=== PATIENT | male | born 2000 | race Caucasian/White ===

== ENCOUNTER 2020-04-26 12:02 | Emergency (ER) | payer MEDICAID, SELFPAY ==
--- NOTE | ~2020-04-26 | XR_ITS ---
EXAMINATION: XR abdomen/kub 1V INDICATION: Bilateral flank pain TECHNIQUE: Supine view of the abdomen is obtained. COMPARISON: None FINDINGS: No abnormal calcifications are identified. A moderate volume of colonic stool is present. T here are no dilated loops of bowel. The visualized osseous structures are normal. IMPRESSION: 1. No radiographic correlate for the patient's symptoms. Reviewed, dictated and finalized at location A. 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
--- NOTE | 2020-04-26 12:22 | ED.MALEGU ---
HPI - Male Genitourinary General Chief complaint: Urogenital-Male Stated complaint: Flank pain Time Seen by Provider: 04/26/20 12:23 Source: patient Mode of arrival: ambulatory Limitations: no limitations History of Present Illness HPI Narrative: Angel Pérez is a 20 yo male with no PMH who comes to express care with c/o hematuria that started yesterday - now has bilateral back pain and pressure when tries to urinate. Intermittent back pain x 4 days Related Data Allergies Allergy/AdvReac Type Severity Reaction Status Date / Time No Known Allergies Verified 04/26/20 12:26 Review of Systems Review of Systems: Narrative: CONSTITUTIONAL: Denies fever, chills, sweats. EYES: Denies visual changes, redness, discharge. ENT: Denies rhinorrhea, congestion, sore throat, otalgia. CARDIOVASCULAR: Denies chest pain, palpitations, edema. RESPIRATORY: Denies dyspnea, wheezing, cough GASTROINTESTINAL: Denies abdominal pain, nausea, vomiting, diarrhea. GENITOURINARY: has dysuria, has hematuria, abnormal discharge SKIN: Denies rash or itching. NEUROLOGIC: Denies numbness, or focal weakness. PSYCHIATRIC: Denies anxiety or depression. PMFSH Past Medical History Medical History No acute medical problems Family History Family History Other No acute medical problems Social History Social History Smoking status: Current every day smoker Alcohol intake: current Gender identity (if verbalized by the patient): Male Comments At time of signature, I agree with nursing past medical, surgical, social and family history. There is no relevant family history pertinent to the presenting complaint. Exam Narrative: Exam Narrative: GENERAL: This is a well-nourished, well-developed patient, in mild distress. HEAD: normocephalic, atraumatic. EYES: Sclera clear/white. Vision is grossly intact. EARS: External ears normal, . Hearing grossly intact. NOSE: External nose normal without nasal discharge, nares without redness, no rhinorrhea. THROAT: Mucous membranes moist, NECK: Neck supple, CARDIOVASCULAR: Regular rate and rhythm without murmurs, gallops, or rubs. RESPIRATORY: Clear to auscultation. Breath sounds equal bilaterally. No wheezes, rales, or rhonchi. GASTROINTESTINAL: Abdomen soft, non-tender, SKIN: warm, intact with no suspicious lesions or rash, good texture and turgor. NEURO: awake, alert, and oriented to person, place and time. There were no obvious focal neurologic abnormalities. Steady gait EXTREMITIES: Normal range of motion. BACK:tender without deformity on Right flank deep tenderness Course Course Emergency Course: Patient came to express care with complaints of hematuria and difficulty starting stream of the last few days They dipstick showed positive leukocytes and blood in urine KUB done which was negative for radiological correlation to clinical symptoms Keflex 500 mg 1 twice daily x7 days if pain worsens or does not improve patient should go to PCP or to the ER for further evaluation Vital Signs Vital signs: Vital Signs Temperature 98.7 F 04/26/20 12:25 Pulse Rate 108 H 04/26/20 12:25 Respiratory Rate 16 04/26/20 12:25 Blood Pressure 135/63 04/26/20 12:25 Pulse Oximetry 99 04/26/20 12:25 Temperature 98.7 F 04/26/20 12:25 Pulse Rate 108 H 04/26/20 12:25 Respiratory Rate 16 04/26/20 12:25 Blood Pressure 135/63 04/26/20 12:25 Pulse Oximetry 99 04/26/20 12:25 MDM - Male Genitourinary Differential Diagnosis Differential diagnosis: Likely urinary tract infection, urethritis and other Lab Data Labs: Urine Glucose Negative Reference Range: Negative Urine Bilirubin Negative Refer
[2020-04-26 12:25] VITALS: BP 135/63; PULSE 108; RESP 16; TEMP 37.1; O2SAT 99
[2020-04-26] MEDS: KETOROLAC 30 MG/ML VIAL (*BKC) IM (12:59)
== END 2020-04-26 13:29 | disposition home or self-care (01) ==
PROVIDERS: Emergency Provider Nurse Practitioner
DX: N30.01 Acute cystitis with hematuria (principal); F17.200 Nicotine dependence, unspecified, uncomplicated
CPT/HCPCS: 74018; 81003; 87086; 87088; 96372; 99213; G0463; J1885

== ENCOUNTER 2020-07-27 00:19 | Emergency (ER) | payer MEDICAID, SELFPAY ==
--- NOTE | ~2020-07-27 | XR_ITS ---
EXAMINATION: XR shoulder LT min 2V DATE: 07/27/2020 01:22 INDICATION: Left shoulder injury. TECHNIQUE: 3 views of left shoulder were obtained. COMPARISON: None. FINDINGS: Bone alignment is normal. No fracture. Joint spaces are well maintained. IMPRESSION: 1. Normal left shoulder. Reviewed, dictated and finalized at location A. AL OFFICER IMPRESSION: 1. Normal left shoulder.
--- NOTE | ~2020-07-27 | CT_ITS ---
EXAMINATION: CT cervical spine wo con DATE: 07/27/2020 01:02 INDICATION: Neck injury. TECHNIQUE: Computed tomography (CT) of the cervical spine was performed without intravenous contrast. Automated exposure control and iterative reconstruction technique were employed. The dose-length pro duct was 316.74 mGy-cm. COMPARISON: None FINDINGS: Bone alignment is normal. Vertebral body heights and intervertebral disc heights are normal . The facet joints and uncovertebral joints are normal. No neural foraminal stenosis or central canal stenosis. There is a trace left mastoid effusion. IMPRESSION: 1. Normal cervical spine. Reviewed, dictated and finalized at location A. E COORDINATOR IMPRESSION: 1. Normal cervical spine.
--- NOTE | ~2020-07-27 | XR_ITS ---
EXAMINATION: XR chest 2V DATE: 07/27/2020 01:22 INDICATION: Chest injury. TECHNIQUE: Frontal and lateral views of the chest were obtained. COMPARISON: None. FINDINGS: The chest demonstrates clear lungs without pneumonia, pleural effusion, or pneumothorax. Th e heart size is normal. IMPRESSION: 1. No acute cardiopulmonary disease. Reviewed, dictated and finalized at location A. SPREADER
[2020-07-27 00:25] VITALS: BP 144/85; PULSE 135; RESP 16; TEMP 36.6; O2SAT 97
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
[2020-07-27] MEDS: diazePAM INJ (*CRX) 10 MG/2 ML SYRINGE 5 MG IV PUSH (01:21)
[2020-07-27] MEDS: KETOROLAC 30 MG/ML VIAL (*BKC) IV PUSH (01:21)
[2020-07-27 01:45] VITALS: BP 131/76; PULSE 117; RESP 21; O2SAT 100
[2020-07-27] MEDS: SODIUM CHLORIDE 0.9% IV 1,000 ML 999 ML IV CONT (01:46)
[2020-07-27 02:34] VITALS: BP 133/85; PULSE 103; RESP 13; O2SAT 100
[2020-07-27 02:54] VITALS: BP 130/80; PULSE 98; RESP 20; O2SAT 100
== END 2020-07-27 02:50 | disposition home or self-care (01) ==
PROVIDERS: Emergency Provider Emergency Medicine
DX: S46.812A Strain of other muscles, fascia and tendons at shoulder and upper arm level, left arm, initial encounter (principal); F17.200 Nicotine dependence, unspecified, uncomplicated; V48.5XXA Car driver injured in noncollision transport accident in traffic accident, initial encounter
CPT/HCPCS: 71046; 72125; 73030; 96361; 96374; 96375; 99284; J1885; J3360; J7030; L0140

== ENCOUNTER 2023-11-20 23:27 | Emergency (ER) | payer MEDICAID, SELFPAY ==
--- NOTE | ~2023-11-20 | XR_ITS ---
Portable chest x-ray Comparison: 07/27/2020 Clinical History: Overdose Findings: Lungs are clear, without focal consolidation or pleural effusion. Cardiomediastinal silho uette is stable. Bones and soft tissues are unremarkable. Impression: Normal chest. Reviewed, dictated and finalized at location . Impression: Normal chest.
[2023-11-20 23:27] VITALS: BP 128/88; PULSE 115; RESP 17; TEMP 36.6; O2SAT 95
[2023-11-20 23:39] VITALS: PULSE 114; RESP 15; O2SAT 100
[2023-11-21 00:15] LABS: Basophils Absolute Auto 0.1 K/mm3 (0.0-0.1); Basophils Percent Auto 0.5 % (0.2-1.2); Eosinophils Absolute Auto 0.4 K/mm3 (0-0.3); Eosinophils Percent Auto 3.5 % (0-4.4); Hematocrit 41.8 % (42.0-52.0); Hemoglobin 14.3 g/dL (14.0-18.0); Immature Granulocyte Absolute 0.02 K/mm3 (0.00-0.031); Immature Granulocyte Percent A 0.2 % (0-0.5); Lymphocytes Absolute Auto 1.78 K/mm3 (0.9-3.2); Lymphocytes Percent Auto 17.1 % (18.3-44.2); Mean Corpuscular HGB Conc 34.2 g/dl (32-36); Mean Corpuscular Hemoglobin 30.2 pg (26-34); Mean Corpuscular Volume 88.2 fl (80-100); Mean Platelet Volume 9.8 fl (7.4-10.4); Monocytes Absolute Auto 0.7 K/mm3 (0.1-0.6); Monocytes Percent Auto 6.4 % (2.6-8.5); Neutrophils Absolute Auto 7.5 K/mm3 (1.3-6.7); Neutrophils Percent Auto 72.3 % (45.5-73.1); Platelet Count Result 221 k/mm3 (150-375); Red Blood Count 4.74 M/mm3 (4.6-6.20); White Blood Count 10.4 K/mm3 (4.5-10.0)
[2023-11-21 00:23] LABS: Acetaminophen < 10 ug/mL (10-30); Ethanol < 10 mg/dL (<10); Salicylate < 1.0 mg/dL (2-20)
[2023-11-21 00:25] LABS: Alanine Aminotransferase 17 U/L (6-50); Albumin Level 4.5 g/dL (3.5-5.1); Alkaline Phosphatase 59 U/L (38-126); Anion Gap 9 mmol/L (4-12); Aspartate Amino Transferase 25 U/L (17-59); Bilirubin,Total 0.9 mg/dL (0.2-1.3); Blood Urea Nitrogen 14 mg/dL (9-20); Calcium 9.2 mg/dL (8.4-10.2); Carbon Dioxide 23 mmol/L (22-30); Chloride 108 mmol/L (98-107); Estimated CRCL calculation 112 ml/min; Estimated Glomerular Filt Rate > 60; Glucose 155 mg/dL (65-110); Potassium 3.3 mmol/L (3.4-5.0); Sodium 140 mmol/L (137-145)
--- NOTE | 2023-11-21 00:55 | ED.GENADULT ---
HPI - General Adult General Chief complaint: Overdose Stated complaint: unresponsive, axox4 after narcan Time Seen by Provider: 11/21/23 00:51 History of Present Illness HPI narrative: Patient is a 23-year-old male who presents to the emergency department this evening after an accidental overdose. Patient admits that he did snort some faint. EMS was due to unresponsiveness and upon arrival patient was unresponsive. They did administer intranasal Narcan 2 mg which did improve the patient's status and patient was awake and talking. On route to the emergency department, patient had an episode where he became unresponsive again and at this time he was administered an additional 2 mg of IV Narcan. Upon arrival, patient is alert and oriented, answers all my questions appropriately and is denying any symptoms. Related Data Allergies Allergy/AdvReac Type Severity Reaction Status Date / Time No Known Allergies Verified 11/20/23 23:34 Review of Systems Review of Systems: All systems are reviewed and are negative unless stated otherwise in the HPI. [facility] Past Medical History Medical History No acute medical problems Surgical History Surgical History No pertinent past surgical history Family History Family History Other No acute medical problems Social History Social History Smoking status: Current every day smoker Alcohol intake: current Substance use type: opiates and methamphetamine Gender identity (if verbalized by the patient): Male Exam Narrative: General: Alert, awake, afebrile, in no acute distress. HEENT: PERRL, no rhinorrhea, no post nasal drip, oropharynx clear. Cardiovascular: Regular rate and rhythm, no murmurs, rubs or gallops, no peripheral edema. Respiratory: Clear to auscultation bilaterally, no tachypnea, no wheezing, no rhonchi, no rubs, no respiratory distress. Abdomen: Soft, nontender, nondistended, no rebound, no guarding, no peritoneal signs. Musculoskeletal: No joint swelling or deformity, normal muscle tone. Skin: No rashes or petechia, no signs of infection. Neurological: Alert and oriented to person, place, and time. Follows all commands. No focal deficits, speech is clear and fluent. Course Vital Signs Vital signs: Vital Signs Temperature 97.9 F 11/20/23 23:27 Pulse Rate 115 H 11/20/23 23:27 Respiratory Rate 17 11/20/23 23:27 Blood Pressure 128/88 11/20/23 23:27 Pulse Oximetry 95 11/20/23 23:27 Oxygen Delivery Room Air 11/20/23 23:27 Temperature 97.9 F 11/20/23 23:27 Pulse Rate 114 H 11/20/23 23:39 Respiratory Rate 15 11/20/23 23:39 Blood Pressure 128/88 11/20/23 23:27 Pulse Oximetry 100 11/20/23 23:39 Oxygen Delivery Room Air 11/20/23 23:39 Medical Decision Making MDM Narrative Medical decision making narrative: The patient was evaluated by myself in the emergency department. History is obtained from patient who is an independent historian and physical exam was performed. External medical records were reviewed at this time. IV was established and pertinent tests were ordered. Laboratory results obtained revealing no acute process. Imaging studies obtained included CXR which was independently interpreted by me revealing no acute process, which is pending final radiology interpretation. Differential diagnosis considerations include accidental versus intentional drug overdose. Patient denies any homicidal suicidal ideations. Comorbidities impacting this visit include history of polysubstance abuse. I have evaluated and discussed social determinants of health with the patient that could potentially impact subsequent diagnosis and treatment plans. On repeat assessment of the patient, reevalua
[2023-11-21 01:11] VITALS: BP 105/67; PULSE 80; RESP 12; O2SAT 97
== END 2023-11-21 01:11 | disposition home or self-care (01) ==
PROVIDERS: Emergency Provider Emergency Medicine
DX: T40.411A Poisoning by fentanyl or fentanyl analogs, accidental (unintentional), initial encounter (principal); F17.210 Nicotine dependence, cigarettes, uncomplicated
CPT/HCPCS: 36415; 71045; 80053; 80307; 85025; 99284

== ENCOUNTER 2024-02-27 13:22 | Emergency (ER) | payer SELFPAY ==
--- NOTE | ~2024-02-27 | XR_ITS ---
EXAMINATION: XR knee RT min 4V DATE: 02/27/2024 13:48 INDICATION: Right knee swelling. TECHNIQUE: 4 views of right knee were obtained. COMPARISON: None. FINDINGS: Alignment is normal. No fracture. Joint spaces are normal. There is a small knee joint effu anna. IMPRESSION: 1. Small right knee joint effusion. Reviewed, dictated and finalized at location A.
--- NOTE | 2024-02-27 13:27 | ED.LOWEXIN ---
HPI - Extremity Injury (Lower) General Chief Complaint: Extremity Injury, Lower Stated Complaint: Swollen Right Knee Time Seen by Provider: 02/27/24 13:35 Source: patient Mode of arrival: ambulatory Limitations: no limitations History of Present Illness HPI Narrative: Angel is a 24-year-old male patient presenting to the clinic today with complaints of right knee pain/swelling x1 week. He denies any known injury. States he woke up with some right knee swelling. Denies any history of arthritis or gout. States that the knee is popping when he is walking and the pain is worse with ambulation. Related Data Allergies Allergy/AdvReac Type Severity Reaction Status Date / Time No Known Allergies Verified 02/27/24 13:30 Review of Systems Review of Systems: Pertinent positives per HPI. Patient denies any fever, chills, rash, headache, visual changes, dizziness, cough, runny nose, sore throat, shortness of breath, chest pain, palpitations, nausea, vomiting, diarrhea, constipation, abdominal pain, or any urinary issues. PMFSH Past Medical History Medical History No acute medical problems Surgical History Surgical History No pertinent past surgical history Family History Family History Other No acute medical problems Social History Social History Smoking status: Current every day smoker Alcohol intake: current Substance use type: opiates and methamphetamine Gender identity (if verbalized by the patient): Male Comments At the time of my signature, I reviewed and agree with the nursing past medical, surgical, social, and family history. There is no relevant family history pertinent to the patient complaint. Exam Narrative: General: Well-developed, well nourished, in no apparent distress Head: Normocephalic, atraumatic. Cardio: Regular rate and rhythm, s1 and s2 normal, no murmur appreciated. Resp: Clear to auscultation bilaterally, no rhonchi, rales, wheezing or rubs. Musculoskeletal: No deformity, tender to palpation to the anterior and posterior knee, pain with full extension of the knee, no pain with valgus and varus testing, grossly normal range of motion, muscle strength strong and equal, peripheral pulse strong, no edema, no cyanosis, limping gait and station Course Course Emergency Course: Portions of this record may have been created with voice recognition software. Level of Care: Express Care Visit Vital Signs Vital signs: Vital signs reviewed MDM - Extremity Injury (Lower) MDM Narrative Medical decision making narrative: At the time of visit patient is resting comfortably on the exam table. Patient appears to be nontoxic. X-ray: Right knee x-ray shows a small joint effusion without acute fracture or malalignment. Plan: I suspect the patient had may have acute injured derangement of the right knee with a small knee joint effusion. Rc wrap was applied. Recommend wearing a hinged knee brace when up ambulating and following up with orthopedic doctor/PCP for further evaluation if symptoms persist. Patient may need MRI to determine meniscus tear or ligament injury. Supportive measures were discussed with the patient and they voiced understanding discharge instructions and agrees to treatment plan. Return precautions reviewed Differential Diagnosis Differential diagnosis: Likely acute internal derangement of knee and other (Gout, joint effusion, meniscus tear) Imaging Data Radiologist's impression: ITS Impressions Knee X-Ray 02/27/24 13:51 IMPRESSION: 1. Small right knee joint effusion. Discharge Plan Discharge Clinical Impression: Effusion of knee joint right Acute internal derangement of knee Qualifiers: Laterality:
[2024-02-27 13:28] VITALS: BP 129/86; PULSE 96; RESP 16; TEMP 36.8; O2SAT 100
== END 2024-02-27 14:08 | disposition home or self-care (01) ==
PROVIDERS: Emergency Provider Nurse Practitioner Family
DX: M25.461 Effusion, right knee (principal); M23.91 Unspecified internal derangement of right knee; F17.200 Nicotine dependence, unspecified, uncomplicated; F15.90 Other stimulant use, unspecified, uncomplicated; F11.90 Opioid use, unspecified, uncomplicated
CPT/HCPCS: 73564; 99213; G0463